=== PATIENT | male | born 1985 | race African-American/Black ===

== ENCOUNTER 2017-01-10 16:27 | Inpatient (IN) | payer OTHER ==
[2017-01-10 19:02] VITALS: BMI 26.6
--- NOTE | 2017-01-10 20:38 | HP ---
CIWA Score - CIWA Score Nausea/Vomitin-Mild Nausea/No Vomiting Muscle Tremors: 2 Anxiety: 3 Agitation: 1-Slight > Activity Paroxysmal Sweats: 2 Orientation: 1-Uncertain about Date Tacttile Disturbances: 1-Very Mild Itch/Numbness Auditory Disturbances: 0-None Visual Disturbances: 1-Very Mild Sensitivity Headache: 1-Very Mild CIWA-Ar Total Score: 13 Admission ROS BHS - HPI Chief Complaint: WITHDRAWAL SYMPTOMS Allergies/Adverse Reactions: Allergies Allergy/AdvReac Type Severity Reaction Status Date / Time No Known Allergies Allergy Verified 09/21/11 23:39 History of Present Illness: 31 Y.O. MAN WITH A HISTORY OF ALCOHOL AND PCP DEPENDENCE IS HERE FOR HIS FIRST ADMISSION INTO DETOX. HE WAS LAST HERE FOR REHAB IN 2012. REPORTS HIS LONGEST PERIOD SOBER HAS BEEN 1.5 YEARS. Exam Limitations: No Limitations - Ebola screening Have you traveled outside of the country in the last 21 days: No Have you had contact with anyone from an Ebola affected area: No Have you been sick,other than usual withdrawal symptoms: No Do you have a fever: No - Review of Systems Constitutional: Loss of Appetite, Unintentional Wgt. Loss EENT: reports: Tearing, Nose Congestion Respiratory: reports: Cough Cardiac: reports: No Symptoms Reported GI: reports: No Symptoms Reported : reports: No Symptoms Reported Musculoskeletal: reports: Back Pain Integumentary: reports: No Symptoms Reported Neuro: reports: Tremors Endocrine: reports: No Symptoms Reported Hematology: reports: No Symptoms Reported Psychiatric: reports: Judgement Intact, Mood/Affect Appropiate Other Systems: Reviewed and Negative Patient History - Patient Medical History Hx Anemia: No Hx Asthma: No Hx Chronic Obstructive Pulmonary Disease (COPD): No Hx Cancer: No Hx Cardiac Disorders: No Hx Congestive Heart Failure: No Hx Hypertension: No Hx Hypercholesterolemia: No Hx Pacemaker: No HX Cerebrovascular Accident: No Hx Seizures: No Hx Dementia: No Hx Diabetes: No Hx Gastrointestinal Disorders: No Hx Liver Disease: No Hx Genitourinary Disorders: No Hx Sexually Transmitted Disorders: No Hx Renal Disease (ESRD): No Hx Thyroid Disease: No Hx Human Immunodeficiency Virus (HIV): No Hx Hepatitis C: No Hx Depression: No Hx Suicide Attempt: No Hx Bipolar Disorder: No Hx Schizophrenia: No - Patient Surgical History Past Surgical History: Yes Hx Neurologic Surgery: Yes (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.) Hx Cataract Extraction: No Hx Cardiac Surgery: No Hx Lung Surgery: No Hx Breast Surgery: No Hx Breast Biopsy: No Hx Abdominal Surgery: No Hx Appendectomy: No Hx Cholecystectomy: No Hx Genitourinary Surgery: No Hx Section: No Hx Orthopedic Surgery: No Other Surgical History: surg to left side brain to remove clot; 4 yrs ago Anesthesia Reaction: No - PPD History Previous Implant?: Yes Documented Results: Negative w/o proof Date: 11/19/12 PPD to be Administered?: Yes - Reproductive History Patient is a Female of Child Bearing Age (11 -55 yrs old): No - Smoking Cessation Smoking history: Former smoker Have you smoked in the past 12 months: No Aproximately how many cigarettes per day: 7 Hx Chewing Tobacco Use: No Initiated information on smoking cessation: Yes 'Breaking Loose' booklet given: 01/10/17 - Substance & Tx. History Hx Alcohol Use: Yes Hx Substance Use: Yes Substance Use Type: Alcohol Hx Substance Use Treatment: Yes (REHAB: 2013; NEVER BEEN TO DETOX ) - Substances Abused Alcohol Route: Oral Frequency: Daily Amount used: 6 24OZ CANS OF BEER Age of first use: 19 Date of Last Use: 01/10/17 PCP Route: Smoking Frequency: Daily Amount used: $10 Age of first use: 28 Date of Last Use: 01/09/17 Family Disease History - Family Disease History Family History: Denies Admission Physical Exam BHS - Vital Signs Vital Signs: Vital Signs - 24 hr 01/10/17 19:00 Temperature 96.9 F L Pulse Rate 83 Respiratory 18 Rate Blood Pressure 154/82 - Physical General Appearance: Yes: Within Normal Limits HEENTM: Yes: Normocephalic, Normal Voice, NIDIA Respiratory: Yes: Chest Non-Tender, Lungs Clear, Normal Breath Sounds, No Respiratory Distress, No Accessory Muscle Use Neck: Yes: No masses,lesions,Nodules, Trachea in good position Breast: Yes: Breast Exam Deferred Cardiology: Yes: Regular Rhythm, Regular Rate Abdominal: Yes: Normal Bowel Sounds, Non Tender, Flat, Soft Genitourinary: Yes: Other (NO COMPLAINTS REPORTED) Back: Yes: Normal Inspection Musculoskeletal: Yes: full range of Motion, Gait Steady Extremities: Yes: Normal Inspection, Normal Range of Motion, Tremors Neurological: Yes: Alert, Motor Strength 5/5, Normal Mood/Affect, Normal Response Integumentary: Yes: Normal Color, Dry Lymphatic: Yes: Within Normal Limits - Diagnostic (1) Nicotine dependence Current Visit: Yes Status: Chronic Qualifiers: Nicotine product type: cigarettes Substance use status: uncomplicated Qualified Code(s): F17.210 - Nicotine dependence, cigarettes, uncomplicated (2) Alcohol dependence with uncomplicated withdrawal Current Visit: Yes Status: Chronic (3) PCP dependence Current Visit: Yes Status: Chronic Cleared for Admission [facility] - Detox or Rehab [facility] Level of Care: Medically Managed Detox Regimen/Protocol: Librium [facility] Breath Alcohol Content Breath Alcohol Content: 0.031 Urine Drug Screen - Results Drug Screen Negative: No Urine Drug Screen Results: PCP-Phencyclidine
[2017-01-10] MEDS ORDERED: IBUPROFEN 400 MG TABLET (FP) PO PRN (20:51)
[2017-01-10] MEDS ORDERED: chlordiazePOXIDE HCL 25 MG CAPSULE PO PRN (20:51)
[2017-01-10] MEDS ORDERED: ACETAMINOPHEN 325 MG TABLET (FP) PO PRN (20:51)
[2017-01-10] MEDS ORDERED: P-EPHED 60MG/TRIPROLIDI 2.5MG TABLET PO PRN (20:51)
[2017-01-10] MEDS ORDERED: LOPERAMIDE HCL 2 MG CAPSULE PO PRN (20:51)
[2017-01-10] MEDS ORDERED: chlordiazePOXIDE HCL 25 MG CAPSULE PO ONE (20:51)
[2017-01-10] MEDS ORDERED: guaiFENesin/D-METHORPHAN HB 10 ML UNIT-DOSE CUPS PO PRN (20:51)
[2017-01-10] MEDS ORDERED: MAGNESIUM CITRATE 300 ML BOTTLE PO PRN (20:51)
[2017-01-10] MEDS ORDERED: hydrOXYzine PAMOATE 50 MG CAPSULE (FP) PO PRN (20:51)
[2017-01-10] MEDS ORDERED: MENTHOL/PHENOL 1 EACH UD MM PRN (20:51)
[2017-01-10] MEDS ORDERED: MAG HYDROX/AL HYDROX/SIMETH 30 ML UNIT-DOSE CUP PO PRN (20:51)
[2017-01-10] MEDS ORDERED: MAGNESIUM HYDROX 2400MG/30ML ORAL SUSPENSION 30 ML CUP PO PRN (20:51)
[2017-01-10] MEDS: chlordiazePOXIDE HCL 25 MG CAPSULE PO SCH (22:20)
[2017-01-10] MEDS: BACITRACIN 0.9 GM PACKET TP SCH (22:20)
[2017-01-10] MEDS: THIAMINE HCL 100 MG TABLET (FP) PO SCH (22:20)
[2017-01-10 23:46] LABS: URINE APPEARANCE CLEAR; URINE BILIRUBIN NEGATIVE (NEGATIVE); URINE BLOOD NEGATIVE (NEGATIVE); URINE COLOR YELLOW; URINE GLUCOSE (UA) NEGATIVE (NEGATIVE); URINE KETONE NEGATIVE (NEGATIVE); URINE LEUK ESTERASE NEGATIVE (NEGATIVE); URINE NITRITE NEGATIVE (NEGATIVE); URINE PROTEIN NEGATIVE (NEGATIVE); URINE UROBILINOGEN NEGATIVE mg/dL (0.2-1.0)
[2017-01-11] MEDS: chlordiazePOXIDE HCL 25 MG CAPSULE PO SCH ×4 (05:47→22:25)
--- NOTE | 2017-01-11 09:20 | EKG ---
Test Reason : Blood Pressure : / mmHG Vent. Rate : 063 BPM Atrial Rate : 063 BPM P-R Int : 146 ms QRS Dur : 092 ms QT Int : 390 ms P-R-T Axes : 058 073 057 degrees QTc Int : 399 ms NORMAL SINUS RHYTHM VOLTAGE CRITERIA FOR LEFT VENTRICULAR HYPERTROPHY ABNORMAL ECG NO PREVIOUS ECGS AVAILABLE Confirmed by SAMMIE PAK MD ([id number]) on 01/11/2017 9:20:13 AM Referred By: Yordy Delcid Confirmed By:SAMMIE PAK MD
[2017-01-11 10:19] LABS: MCH 22.6 pg (25.7-33.7); MCHC 30.7 g/dl (32.0-35.9); MEAN CELL VOLUME 73.6 fl (80-96); MEAN PLT VOLUME 9.3 fl (7.5-11.1); PLATELET COUNT 237 K/MM3 (134-434); RDW 14.3 % (11.9-15.9); WHITE BLOOD COUNT 6.4 K/mm3 (4.0-10.0)
[2017-01-11] MEDS: PRENATAL VITAMINS W/ FOLIC ACID TABLET (FP) PO SCH (10:43)
[2017-01-11] MEDS: BACITRACIN 0.9 GM PACKET TP SCH (10:44)
[2017-01-11 11:20] LABS: ALBUMIN 3.9 g/dl (3.4-5.0); ALK PHOS 58 U/L (45-117); ANION GAP 7 (8-16); BILIRUBIN,TOTAL 0.5 mg/dL (0.2-1.0); CALCIUM 9.1 mg/dL (8.5-10.1); CO2 29 mmol/L (21-32); CREATININE 0.7 mg/dL (0.7-1.3); GLUCOSE,RANDOM 78 mg/dL (74-106); SGOT/AST 51 U/L (15-37); SGPT/ALT 48 U/L (12-78); TOT PROT 6.5 g/dl (6.4-8.2)
[2017-01-11 11:51] LABS: HIV 1 & 2 AB NEGATIVE; HIV 1 AGp24 NEGATIVE
--- NOTE | 2017-01-11 12:41 | PN ---
[facility] CIWA - CIWA Score Nausea/Vomitin-No Nausea/No Vomiting Muscle Tremors: 4-Moderate,w/Arms Extend Anxiety: 4-Mod. Anxious/Guarded Agitation: 4-Moderately Restless Paroxysmal Sweats: 1-Minimal Palms Moist Orientation: 0-Oriented Tacttile Disturbances: 3-Moderate Itch/Numb/Burn Auditory Disturbances: 0-None Visual Disturbances: 0-None Headache: 0-None Present CIWA-Ar Total Score: 16 S Progress Note (SOAP) Subjective: ANXIETY,SWEATS, TREMORS, INTERMITTENT SLEEP. Objective: 01/11/17 12:40 Vital Signs Temperature 96.0 F L 01/11/17 10:34 Pulse Rate 60 01/11/17 10:34 Respiratory Rate 18 01/11/17 10:34 Blood Pressure 116/74 01/11/17 10:34 O2 Sat by Pulse Oximetry (%) Laboratory Last Values WBC 6.4 K/mm3 (4.0-10.0) 01/11/17 07:40 RBC 5.22 M/mm3 (4.00-5.60) 01/11/17 07:40 Hgb 11.8 GM/dL (11.7-16.9) 01/11/17 07:40 Hct 38.4 % (35.4-49) 01/11/17 07:40 MCV 73.6 fl (80-96) L 01/11/17 07:40 MCH 22.6 pg (25.7-33.7) L 01/11/17 07:40 MCHC 30.7 g/dl (32.0-35.9) L 01/11/17 07:40 RDW 14.3 % (11.9-15.9) 01/11/17 07:40 Plt Count 237 K/MM3 (134-434) 01/11/17 07:40 MPV 9.3 fl (7.5-11.1) 01/11/17 07:40 Sodium 140 mmol/L (136-145) 01/11/17 07:40 Potassium 3.9 mmol/L (3.5-5.1) 01/11/17 07:40 Chloride 104 mmol/L (98-107) 01/11/17 07:40 Carbon Dioxide 29 mmol/L (21-32) 01/11/17 07:40 Anion Gap 7 (8-16) L 01/11/17 07:40 BUN 11 mg/dL (7-18) 01/11/17 07:40 Creatinine 0.7 mg/dL (0.7-1.3) 01/11/17 07:40 Creat Clearance w eGFR > 60 (>60) 01/11/17 07:40 Random Glucose 78 mg/dL (74-106) 01/11/17 07:40 Calcium 9.1 mg/dL (8.5-10.1) 01/11/17 07:40 Total Bilirubin 0.5 mg/dL (0.2-1.0) D 01/11/17 07:40 AST 51 U/L (15-37) H 01/11/17 07:40 ALT 48 U/L (12-78) 01/11/17 07:40 Alkaline Phosphatase 58 U/L (45-117) 01/11/17 07:40 Total Protein 6.5 g/dl (6.4-8.2) 01/11/17 07:40 Albumin 3.9 g/dl (3.4-5.0) 01/11/17 07:40 Urine Color Yellow 01/10/17 21:59 Urine Appearance Clear 01/10/17 21:59 Urine pH 5.0 (5.0-8.0) 01/10/17 21:59 Ur Specific [place] 1.025 (1.005-1.025) 01/10/17 21:59 Urine Protein Negative (NEGATIVE) 01/10/17 21:59 Urine Glucose (UA) Negative (NEGATIVE) 01/10/17 21:59 Urine Ketones Negative (NEGATIVE) 01/10/17 21:59 Urine Blood Negative (NEGATIVE) 01/10/17 21:59 Urine Nitrite Negative (NEGATIVE) 01/10/17 21:59 Urine Bilirubin Negative (NEGATIVE) 01/10/17 21:59 Urine Urobilinogen Negative mg/dL (0.2-1.0) 01/10/17 21:59 RPR Titer Nonreactive (NONREACTIVE) 01/11/17 07:40 HIV 1&2 Antibody Screen Negative 01/11/17 07:40 HIV P24 Antigen Negative 01/11/17 07:40 Assessment: 01/11/17 12:40 WITHDRAWAL SX Plan: CONTINUE DETOX
[2017-01-11] MEDS: diphenhydrAMINE HCL 50 MG CAPSULE PO PRN (22:25)
[2017-01-11] MEDS: THIAMINE HCL 100 MG TABLET (FP) PO SCH (22:25)
[2017-01-12] MEDS: chlordiazePOXIDE HCL 25 MG CAPSULE PO SCH ×3 (05:49→17:34)
[2017-01-12] MEDS: PRENATAL VITAMINS W/ FOLIC ACID TABLET (FP) PO SCH (10:40)
[2017-01-12] MEDS: BACITRACIN 0.9 GM PACKET TP SCH (10:40)
--- NOTE | 2017-01-12 13:50 | PN ---
[facility] CIWA - CIWA Score Nausea/Vomitin-No Nausea/No Vomiting Muscle Tremors: 4-Moderate,w/Arms Extend Anxiety: 4-Mod. Anxious/Guarded Agitation: 3 Paroxysmal Sweats: 3 Orientation: 0-Oriented Tacttile Disturbances: 0-None Auditory Disturbances: 2-Mild Harshness/Frighten Visual Disturbances: 3-Moderate Sensitivity Headache: 0-None Present CIWA-Ar Total Score: 19 S Progress Note (SOAP) Subjective: Tremors, Fatigue, Sweating, Anxious. Objective: PT. A & O X 3. NO ACUTE DISTRESS. 01/12/17 13:48 Vital Signs Temperature 96.5 F L 01/12/17 09:46 Pulse Rate 65 01/12/17 09:46 Respiratory Rate 18 01/12/17 09:46 Blood Pressure 112/43 01/12/17 09:46 O2 Sat by Pulse Oximetry (%) Laboratory Tests 01/10/17 01/11/17 01/11/17 21:59 07:40 07:40 WBC 6.4 RBC 5.22 Hgb 11.8 Hct 38.4 MCV 73.6 L MCH 22.6 L MCHC 30.7 L RDW 14.3 Plt Count 237 MPV 9.3 Sodium Potassium Chloride Carbon Dioxide Anion Gap BUN Creatinine Creat Clearance w eGFR Random Glucose Calcium Total Bilirubin AST ALT Alkaline Phosphatase Total Protein Albumin Urine Color Yellow Urine Appearance Clear Urine pH 5.0 Ur Specific [place] 1.025 Urine Protein Negative Urine Glucose (UA) Negative Urine Ketones Negative Urine Blood Negative Urine Nitrite Negative Urine Bilirubin Negative Urine Urobilinogen Negative RPR Titer Hepatitis C Antibody 0.1 HIV 1&2 Antibody Screen HIV P24 Antigen 01/11/17 01/11/17 01/11/17 07:40 07:40 07:40 WBC RBC Hgb Hct MCV MCH MCHC RDW Plt Count MPV Sodium 140 Potassium 3.9 Chloride 104 Carbon Dioxide 29 Anion Gap 7 L BUN 11 Creatinine 0.7 Creat Clearance w eGFR > 60 Random Glucose 78 Calcium 9.1 Total Bilirubin 0.5 D AST 51 H ALT 48 Alkaline Phosphatase 58 Total Protein 6.5 Albumin 3.9 Urine Color Urine Appearance Urine pH Ur Specific [place] Urine Protein Urine Glucose (UA) Urine Ketones Urine Blood Urine Nitrite Urine Bilirubin Urine Urobilinogen RPR Titer Nonreactive Hepatitis C Antibody HIV 1&2 Antibody Screen Negative Negative HIV P24 Antigen Negative Negative LABS NOTED. Assessment: 01/12/17 13:49 WITHDRAWAL SYMPTOMS. Plan: CONTINUE DETOX. INCREASE DAILY PO FLUID INTAKE.
[2017-01-12] MEDS: THIAMINE HCL 100 MG TABLET (FP) PO SCH (22:25)
[2017-01-12] MEDS: diphenhydrAMINE HCL 50 MG CAPSULE PO PRN (22:26)
[2017-01-12] MEDS: chlordiazePOXIDE 5 MG CAPSULE PO SCH (22:26)
[2017-01-13] MEDS: chlordiazePOXIDE 5 MG CAPSULE PO SCH ×3 (05:43→17:47)
[2017-01-13] MEDS: PRENATAL VITAMINS W/ FOLIC ACID TABLET (FP) PO SCH (11:05)
[2017-01-13] MEDS: BACITRACIN 0.9 GM PACKET TP SCH (11:05)
--- NOTE | 2017-01-13 14:55 | PN ---
S Progress Note (SOAP) Subjective: Anxious, nausea, sweating, interrupted sleep Objective: 01/13/17 14:54 Last Vital Signs Temp Pulse Resp BP Pulse Ox 98.3 F 84 18 133/60 01/13/17 13:52 01/13/17 13:52 01/13/17 13:52 01/13/17 13:52 Laboratory Tests 01/10/17 01/11/17 01/11/17 21:59 07:40 07:40 WBC 6.4 RBC 5.22 Hgb 11.8 Hct 38.4 MCV 73.6 L MCH 22.6 L MCHC 30.7 L RDW 14.3 Plt Count 237 MPV 9.3 Sodium Potassium Chloride Carbon Dioxide Anion Gap BUN Creatinine Creat Clearance w eGFR Random Glucose Calcium Total Bilirubin AST ALT Alkaline Phosphatase Total Protein Albumin Urine Color Yellow Urine Appearance Clear Urine pH 5.0 Ur Specific [place] 1.025 Urine Protein Negative Urine Glucose (UA) Negative Urine Ketones Negative Urine Blood Negative Urine Nitrite Negative Urine Bilirubin Negative Urine Urobilinogen Negative RPR Titer Hepatitis C Antibody 0.1 HIV 1&2 Antibody Screen HIV P24 Antigen 01/11/17 01/11/17 01/11/17 07:40 07:40 07:40 WBC RBC Hgb Hct MCV MCH MCHC RDW Plt Count MPV Sodium 140 Potassium 3.9 Chloride 104 Carbon Dioxide 29 Anion Gap 7 L BUN 11 Creatinine 0.7 Creat Clearance w eGFR > 60 Random Glucose 78 Calcium 9.1 Total Bilirubin 0.5 D AST 51 H ALT 48 Alkaline Phosphatase 58 Total Protein 6.5 Albumin 3.9 Urine Color Urine Appearance Urine pH Ur Specific [place] Urine Protein Urine Glucose (UA) Urine Ketones Urine Blood Urine Nitrite Urine Bilirubin Urine Urobilinogen RPR Titer Nonreactive Hepatitis C Antibody HIV 1&2 Antibody Screen Negative Negative HIV P24 Antigen Negative Negative Labs noted Assessment: 01/13/17 14:55 Withdrawal symptoms Plan: Continue detox
[2017-01-13] MEDS: THIAMINE HCL 100 MG TABLET (FP) PO SCH (22:33)
[2017-01-13] MEDS: diphenhydrAMINE HCL 50 MG CAPSULE PO PRN (22:33)
[2017-01-13] MEDS: chlordiazePOXIDE HCL 10 MG CAPSULE PO SCH (22:33)
[2017-01-14] MEDS: chlordiazePOXIDE HCL 10 MG CAPSULE PO SCH (05:55)
[2017-01-14 06:18] VITALS: BP 103/64; PULSE 55; TEMP 96.7
--- NOTE | 2017-01-14 09:25 | DS ---
[facility] Detox Discharge Summary Admission Date: 01/10/17 Discharge Date: 01/14/17 - History Present History: Alcohol Dependence, Pcp Dependence Pertinent Past History: Denies - Physical Exam Results Vital Signs: Vital Signs Temperature 96.7 F L 01/14/17 06:16 Pulse Rate 55 L 01/14/17 06:16 Respiratory Rate 16 01/14/17 06:16 Blood Pressure 103/64 01/14/17 06:16 O2 Sat by Pulse Oximetry (%) Pertinent Admission Physical Exam Findings: Withdrawal sx Laboratory Last Values WBC 6.4 K/mm3 (4.0-10.0) 01/11/17 07:40 RBC 5.22 M/mm3 (4.00-5.60) 01/11/17 07:40 Hgb 11.8 GM/dL (11.7-16.9) 01/11/17 07:40 Hct 38.4 % (35.4-49) 01/11/17 07:40 MCV 73.6 fl (80-96) L 01/11/17 07:40 MCH 22.6 pg (25.7-33.7) L 01/11/17 07:40 MCHC 30.7 g/dl (32.0-35.9) L 01/11/17 07:40 RDW 14.3 % (11.9-15.9) 01/11/17 07:40 Plt Count 237 K/MM3 (134-434) 01/11/17 07:40 MPV 9.3 fl (7.5-11.1) 01/11/17 07:40 Sodium 140 mmol/L (136-145) 01/11/17 07:40 Potassium 3.9 mmol/L (3.5-5.1) 01/11/17 07:40 Chloride 104 mmol/L (98-107) 01/11/17 07:40 Carbon Dioxide 29 mmol/L (21-32) 01/11/17 07:40 Anion Gap 7 (8-16) L 01/11/17 07:40 BUN 11 mg/dL (7-18) 01/11/17 07:40 Creatinine 0.7 mg/dL (0.7-1.3) 01/11/17 07:40 Creat Clearance w eGFR > 60 (>60) 01/11/17 07:40 Random Glucose 78 mg/dL (74-106) 01/11/17 07:40 Calcium 9.1 mg/dL (8.5-10.1) 01/11/17 07:40 Total Bilirubin 0.5 mg/dL (0.2-1.0) D 01/11/17 07:40 AST 51 U/L (15-37) H 01/11/17 07:40 ALT 48 U/L (12-78) 01/11/17 07:40 Alkaline Phosphatase 58 U/L (45-117) 01/11/17 07:40 Total Protein 6.5 g/dl (6.4-8.2) 01/11/17 07:40 Albumin 3.9 g/dl (3.4-5.0) 01/11/17 07:40 Urine Color Yellow 01/10/17 21:59 Urine Appearance Clear 01/10/17 21:59 Urine pH 5.0 (5.0-8.0) 01/10/17 21:59 Ur Specific [place] 1.025 (1.005-1.025) 01/10/17 21:59 Urine Protein Negative (NEGATIVE) 01/10/17 21:59 Urine Glucose (UA) Negative (NEGATIVE) 01/10/17 21:59 Urine Ketones Negative (NEGATIVE) 01/10/17 21:59 Urine Blood Negative (NEGATIVE) 01/10/17 21:59 Urine Nitrite Negative (NEGATIVE) 01/10/17 21:59 Urine Bilirubin Negative (NEGATIVE) 01/10/17 21:59 Urine Urobilinogen Negative mg/dL (0.2-1.0) 01/10/17 21:59 RPR Titer Nonreactive (NONREACTIVE) 01/11/17 07:40 Hepatitis C Antibody 0.1 s/co ratio (0.0-0.9) 01/11/17 07:40 HIV 1&2 Antibody Screen Negative 01/11/17 07:40 HIV P24 Antigen Negative 01/11/17 07:40 Labs noted - Treatment Hospital Course: Detox Protocol Followed, Detoxed Safely, Responded well, Discharged Condition Good, Rehab Referral Accepted Patient has Accepted a Rehab Referral to: [facility] - Medication Discharge Medications: Ambulatory Orders NK [No Known Home Medication] 01/10/17 - Diagnosis (1) Alcohol dependence with uncomplicated withdrawal Current Visit: Yes Status: Acute (2) Nicotine dependence Current Visit: Yes Status: Acute Qualifiers: Nicotine product type: cigarettes Substance use status: uncomplicated Qualified Code(s): F17.210 - Nicotine dependence, cigarettes, uncomplicated (3) PCP dependence Current Visit: Yes Status: Acute - AMA Did Patient Leave Against Medical Advice: No
== END 2017-01-14 10:02 | disposition home or self-care (01) | DRG 775 ==
LOC: YASAS 16:27 → Y3N 20:28
PROVIDERS: ADMIT Internal Medicine; ATTEND Internal Medicine
PROC: HZ2ZZZZ Detoxification Services for Substance Abuse Treatment (ICD-10-PCS; principal; 2017-01-10)
DX: F10.230 Alcohol dependence with withdrawal, uncomplicated (principal); F16.20 Hallucinogen dependence, uncomplicated; F17.210 Nicotine dependence, cigarettes, uncomplicated
CPT/HCPCS: 36415; 80053; 81003; 85027; 86593; 86803; 87389; 93005; 93010

== ENCOUNTER 2019-01-05 12:30 | Inpatient (IN) | payer OTHER ==
[2019-01-05 15:28] VITALS: BMI 23.8
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
--- NOTE | 2019-01-05 16:22 | PN ---
Teaching Attending Note Name of Resident: Zia Chávez ATTENDING PHYSICIAN STATEMENT I saw and evaluated the patient. I reviewed the resident's note and discussed the case with the resident. I agree with the resident's findings and plan as documented. SUBJECTIVE: 33 yo with h/o alcohol use disorder- here for detox. Pt was referred here from outpt alcohol program. MATT- 0.88 OBJECTIVE: Vital Signs - 24 hr 01/05/19 15:17 Temperature 97.1 F L Pulse Rate 78 Respiratory 20 Rate Blood Pressure 128/70 tremulous anxious ASSESSMENT AND PLAN: Alcohol use disorder- start librium detox protocol
[2019-01-05] MEDS ORDERED: NICOTINE POLACRILEX 2 MG GUM BUC PRN (16:23)
[2019-01-05] MEDS ORDERED: MAGNESIUM CITRATE 300 ML BOTTLE PO PRN (16:23)
[2019-01-05] MEDS ORDERED: hydrOXYzine PAMOATE 25 MG CAPSULE (FP) PO PRN (16:23)
[2019-01-05] MEDS ORDERED: MAGNESIUM HYDROX 2400MG/30ML ORAL SUSPENSION 30 ML CUP PO PRN (16:23)
[2019-01-05] MEDS ORDERED: METHOCARBAMOL 500 MG TABLET PO PRN (16:23)
[2019-01-05] MEDS ORDERED: MENTHOL/PHENOL 1 EACH UD MM PRN (16:23)
[2019-01-05] MEDS ORDERED: BISMUTH SUBSALICYLATE 524 MG/30 ML UD PO PRN (16:23)
[2019-01-05] MEDS ORDERED: ACETAMINOPHEN 325 MG TABLET (FP) PO PRN ×2 (16:23)
[2019-01-05] MEDS ORDERED: IBUPROFEN 400 MG TABLET (FP) PO PRN (16:23)
[2019-01-05] MEDS ORDERED: MAG HYDROX/AL HYDROX/SIMETH 30 ML UNIT-DOSE CUP PO PRN (16:23)
[2019-01-05] MEDS ORDERED: chlordiazePOXIDE HCL 10 MG CAPSULE PO PRN (16:23)
[2019-01-05] MEDS: chlordiazePOXIDE HCL 25 MG CAPSULE PO SCH ×2 (17:47→22:11)
[2019-01-05] MEDS: THIAMINE HCL 100 MG TABLET (FP) PO SCH (22:11)
[2019-01-06] MEDS: chlordiazePOXIDE HCL 25 MG CAPSULE PO SCH ×3 (05:48→21:59)
--- NOTE | 2019-01-06 09:53 | PN ---
S CIWA - CIWA Score Nausea/Vomitin Muscle Tremors: 2 Anxiety: 2 Agitation: 2 Paroxysmal Sweats: No Perspiration Orientation: 0-Oriented Tacttile Disturbances: 1-Very Mild Itch/Numbness Auditory Disturbances: 0-None Visual Disturbances: 0-None Headache: 2-Mild CIWA-Ar Total Score: 11 BHS Progress Note (SOAP) Subjective: alert,irritable,anxious,interrupted sleep,tremor,abrasion of right thumb Objective: 01/06/19 09:51 Vital Signs Temperature 97.4 F L 01/06/19 09:08 Pulse Rate 70 01/06/19 09:08 Respiratory Rate 18 01/06/19 09:08 Blood Pressure 100/56 L 01/06/19 09:08 O2 Sat by Pulse Oximetry (%) 01/06/19 09:51 Laboratory Last Values TB (QFT) Incubation Cancelled 01/06/19 08:00 TB Test (QFT) Nil Cancelled 01/06/19 08:00 TB Test (QFT) Mitogen Cancelled 01/06/19 08:00 TB Test (QFT) Antigen Cancelled 01/06/19 08:00 TB Test (QFT) Cancelled 01/06/19 08:00 TB Positive Criteria Cancelled 01/06/19 08:00 TB Test (QFT) Interp Cancelled 01/06/19 08:00 labs pending Assessment: 01/06/19 09:52 withdrawal symptom Plan: continue detox librium regimen
[2019-01-06 10:03] LABS: HEMATOCRIT 37.1 % (35.4-49); HEMOGLOBIN 11.7 GM/dL (11.7-16.9); MCH 22.8 pg (25.7-33.7); MCHC 31.5 g/dl (32.0-35.9); MEAN CELL VOLUME 72.1 fl (80-96); MEAN PLT VOLUME 9.1 fl (7.5-11.1); PLATELET COUNT 227 K/MM3 (134-434); RBC 5.15 M/mm3 (4.00-5.60); RDW 15.6 % (11.9-15.9); WHITE BLOOD COUNT 5.3 K/mm3 (4.0-10.0)
[2019-01-06 10:07] LABS: ALBUMIN 3.7 g/dl (3.4-5.0); BILIRUBIN,TOTAL 0.8 mg/dL (0.2-1); BLOOD UREA NITROGEN 11.4 mg/dL (7-18); CALCIUM 9.1 mg/dL (8.5-10.1); CREATININE 0.7 mg/dL (0.55-1.3); POTASSIUM 4.1 mmol/L (3.5-5.1); TOT PROT 6.6 g/dl (6.4-8.2)
[2019-01-06] MEDS: PRENATAL VITAMINS W/ FOLIC ACID TABLET (FP) PO SCH (10:10)
[2019-01-06] MEDS: BACITRACIN 15 GM TUBE TOPICAL OINTMENT TP SCH ×2 (13:11→22:00)
[2019-01-06] MEDS: THIAMINE HCL 100 MG TABLET (FP) PO SCH (21:59)
[2019-01-06] MEDS: MELATONIN 5 MG TABLETS PO PRN (22:00)
[2019-01-07] MEDS: chlordiazePOXIDE 5 MG CAPSULE PO SCH ×3 (06:25→22:00)
[2019-01-07] MEDS: PRENATAL VITAMINS W/ FOLIC ACID TABLET (FP) PO SCH (10:05)
[2019-01-07] MEDS: BACITRACIN 15 GM TUBE TOPICAL OINTMENT TP SCH ×2 (10:05→22:01)
--- NOTE | 2019-01-07 14:03 | PN ---
[facility] CIWA - CIWA Score Nausea/Vomitin-Mild Nausea/No Vomiting Muscle Tremors: 3 Anxiety: 2 Agitation: 2 Paroxysmal Sweats: 1-Minimal Palms Moist Orientation: 0-Oriented Tacttile Disturbances: 1-Very Mild Itch/Numbness Auditory Disturbances: 0-None Visual Disturbances: 0-None Headache: 0-None Present CIWA-Ar Total Score: 10 S Progress Note (SOAP) Subjective: doing well with librium detox regimen feeling tired resting on bed prefers to stay in bed today limited conversation with staff denies depression but tired Objective: 01/07/19 14:03 Vital Signs Temperature 96.2 F L 01/07/19 13:06 Pulse Rate 63 01/07/19 13:06 Respiratory Rate 18 01/07/19 13:06 Blood Pressure 129/78 01/07/19 13:06 O2 Sat by Pulse Oximetry (%) Laboratory Last Values WBC 5.3 K/mm3 (4.0-10.0) 01/06/19 08:00 RBC 5.15 M/mm3 (4.00-5.60) 01/06/19 08:00 Hgb 11.7 GM/dL (11.7-16.9) 01/06/19 08:00 Hct 37.1 % (35.4-49) 01/06/19 08:00 MCV 72.1 fl (80-96) L 01/06/19 08:00 MCH 22.8 pg (25.7-33.7) L 01/06/19 08:00 MCHC 31.5 g/dl (32.0-35.9) L 01/06/19 08:00 RDW 15.6 % (11.9-15.9) 01/06/19 08:00 Plt Count 227 K/MM3 (134-434) 01/06/19 08:00 MPV 9.1 fl (7.5-11.1) 01/06/19 08:00 Sodium 139 mmol/L (136-145) 01/06/19 08:00 Potassium 4.1 mmol/L (3.5-5.1) 01/06/19 08:00 Chloride 105 mmol/L (98-107) 01/06/19 08:00 Carbon Dioxide 29 mmol/L (21-32) 01/06/19 08:00 Anion Gap 5 MMOL/L (8-16) L 01/06/19 08:00 BUN 11.4 mg/dL (7-18) 01/06/19 08:00 Creatinine 0.7 mg/dL (0.55-1.3) 01/06/19 08:00 Est GFR (CKD-EPI)AfAm 141.70 01/06/19 08:00 Est GFR (CKD-EPI)NonAf 122.26 01/06/19 08:00 Random Glucose 86 mg/dL (74-106) 01/06/19 08:00 Calcium 9.1 mg/dL (8.5-10.1) 01/06/19 08:00 Total Bilirubin 0.8 mg/dL (0.2-1) 01/06/19 08:00 AST 49 U/L (15-37) H 01/06/19 08:00 ALT 60 U/L (13-61) 01/06/19 08:00 Alkaline Phosphatase 56 U/L (45-117) 01/06/19 08:00 Total Protein 6.6 g/dl (6.4-8.2) 01/06/19 08:00 Albumin 3.7 g/dl (3.4-5.0) 01/06/19 08:00 RPR Titer Nonreactive (NONREACTIVE) 01/06/19 08:00 TB (QFT) Incubation Cancelled 01/06/19 08:00 TB Test (QFT) Nil Cancelled 01/06/19 08:00 TB Test (QFT) Mitogen Cancelled 01/06/19 08:00 TB Test (QFT) Antigen Cancelled 01/06/19 08:00 TB Test (QFT) Cancelled 01/06/19 08:00 TB Positive Criteria Cancelled 01/06/19 08:00 TB Test (QFT) Interp Cancelled 01/06/19 08:00 lab noted Assessment: 01/07/19 14:03 alcohol withdrawal sx Plan: continue librium detox
[2019-01-07] MEDS: MELATONIN 5 MG TABLETS PO PRN (22:01)
[2019-01-07] MEDS: THIAMINE HCL 100 MG TABLET (FP) PO SCH (22:01)
[2019-01-08] MEDS ORDERED: chlordiazePOXIDE HCL 10 MG CAPSULE PO PRN
[2019-01-08] MEDS: chlordiazePOXIDE HCL 10 MG CAPSULE PO SCH ×3 (05:46→21:59)
--- NOTE | 2019-01-08 09:13 | PN ---
[facility] COWS - Scale Resting Pulse: 0= UT 80 or Below Sweatin= Chills/Flushing Restless Observation: 1= Difficult to Sit Still Pupil Size: 0= Normal to Room Light Bone or Joint Aches: 1= Mild Discomfort Runny Nose/ Eye Tearin= Nasal Congestion GI Upset > 30mins: 1= Stomach Cramp Tremor Observation of Outstretched Hands: 1= Tremor [place], Not Seen Yawning Observation: 1= 1-2x During Session Anxiety or Irritability: 1=Feels Anxious/Irritable Goose Flesh Skin: 0=Smooth Skin COWS Score: 8 S Progress Note (SOAP) Subjective: doing well with librium detox regimen ate 90% breakfast resting on bed comfortably less tremor mild anxiety Objective: 01/08/19 09:12 Vital Signs Temperature 97.8 F 01/08/19 06:17 Pulse Rate 49 L 01/08/19 06:17 Respiratory Rate 18 01/08/19 06:17 Blood Pressure 116/68 01/08/19 06:17 O2 Sat by Pulse Oximetry (%) Laboratory Last Values WBC 5.3 K/mm3 (4.0-10.0) 01/06/19 08:00 RBC 5.15 M/mm3 (4.00-5.60) 01/06/19 08:00 Hgb 11.7 GM/dL (11.7-16.9) 01/06/19 08:00 Hct 37.1 % (35.4-49) 01/06/19 08:00 MCV 72.1 fl (80-96) L 01/06/19 08:00 MCH 22.8 pg (25.7-33.7) L 01/06/19 08:00 MCHC 31.5 g/dl (32.0-35.9) L 01/06/19 08:00 RDW 15.6 % (11.9-15.9) 01/06/19 08:00 Plt Count 227 K/MM3 (134-434) 01/06/19 08:00 MPV 9.1 fl (7.5-11.1) 01/06/19 08:00 Sodium 139 mmol/L (136-145) 01/06/19 08:00 Potassium 4.1 mmol/L (3.5-5.1) 01/06/19 08:00 Chloride 105 mmol/L (98-107) 01/06/19 08:00 Carbon Dioxide 29 mmol/L (21-32) 01/06/19 08:00 Anion Gap 5 MMOL/L (8-16) L 01/06/19 08:00 BUN 11.4 mg/dL (7-18) 01/06/19 08:00 Creatinine 0.7 mg/dL (0.55-1.3) 01/06/19 08:00 Est GFR (CKD-EPI)AfAm 141.70 01/06/19 08:00 Est GFR (CKD-EPI)NonAf 122.26 01/06/19 08:00 Random Glucose 86 mg/dL (74-106) 01/06/19 08:00 Calcium 9.1 mg/dL (8.5-10.1) 01/06/19 08:00 Total Bilirubin 0.8 mg/dL (0.2-1) 01/06/19 08:00 AST 49 U/L (15-37) H 01/06/19 08:00 ALT 60 U/L (13-61) 01/06/19 08:00 Alkaline Phosphatase 56 U/L (45-117) 01/06/19 08:00 Total Protein 6.6 g/dl (6.4-8.2) 01/06/19 08:00 Albumin 3.7 g/dl (3.4-5.0) 01/06/19 08:00 RPR Titer Nonreactive (NONREACTIVE) 01/06/19 08:00 HIV 1&2 Ag/Ab, 4th Gen Non reactive (Non Reactive) 01/06/19 08:00 TB (QFT) Incubation Cancelled 01/06/19 08:00 TB Test (QFT) Nil Cancelled 01/06/19 08:00 TB Test (QFT) Mitogen Cancelled 01/06/19 08:00 TB Test (QFT) Antigen Cancelled 01/06/19 08:00 TB Test (QFT) Cancelled 01/06/19 08:00 TB Positive Criteria Cancelled 01/06/19 08:00 TB Test (QFT) Interp Cancelled 01/06/19 08:00 lab noted QFT blood sample received as ordered 01/06/19 result pending 01/08/19 09:14 Assessment: 01/08/19 09:16 alcohol withdrawal sx Plan: continue librium detox regimen
[2019-01-08] MEDS: BACITRACIN 15 GM TUBE TOPICAL OINTMENT TP SCH ×2 (10:08→21:59)
[2019-01-08] MEDS: PRENATAL VITAMINS W/ FOLIC ACID TABLET (FP) PO SCH (10:08)
[2019-01-08] MEDS: MELATONIN 5 MG TABLETS PO PRN (21:59)
[2019-01-08] MEDS: THIAMINE HCL 100 MG TABLET (FP) PO SCH (21:59)
[2019-01-09] MEDS ORDERED: chlordiazePOXIDE HCL 10 MG CAPSULE PO ONE (05:00)
[2019-01-09 09:20] VITALS: BP 112/72; PULSE 66; TEMP 96.8
[2019-01-09] MEDS: BACITRACIN 15 GM TUBE TOPICAL OINTMENT TP SCH (09:45)
[2019-01-09] MEDS: PRENATAL VITAMINS W/ FOLIC ACID TABLET (FP) PO SCH (09:45)
--- NOTE | 2019-01-09 19:10 | DS ---
[facility] Detox Discharge Summary Admission Date: 01/05/19 Discharge Date: 01/09/19 - History Present History: Alcohol Dependence, Pcp Dependence Additional Comments: SINCE NO BEDS ARE AVAILABLE IN [facility] AT THIS TIME, PATIENT TO RETURN HOME FOR THE WEEK. THEN HE WILL APPLY FOR ADMISSION TO [facility] ON 01/12/2019. PATIENT WAS DISCHARGED FROM DETOX UNIT IN STABLE MEDICAL CONDITION. Pertinent Past History: Nicotine Dependence, Elevated AST Level. - Physical Exam Results Vital Signs: Vital Signs Temperature 96.8 F L 01/09/19 09:19 Pulse Rate 66 01/09/19 09:19 Respiratory Rate 20 01/09/19 09:19 Blood Pressure 112/72 01/09/19 09:19 O2 Sat by Pulse Oximetry (%) Pertinent Admission Physical Exam Findings: WITHDRAWAL SYMPTOMS. Laboratory Tests 01/06/19 01/06/19 01/06/19 08:00 08:00 08:00 WBC 5.3 RBC 5.15 Hgb 11.7 Hct 37.1 MCV 72.1 L MCH 22.8 L MCHC 31.5 L RDW 15.6 Plt Count 227 MPV 9.1 Sodium 139 Potassium 4.1 Chloride 105 Carbon Dioxide 29 Anion Gap 5 L BUN 11.4 Creatinine 0.7 Est GFR (CKD-EPI)AfAm 141.70 Est GFR (CKD-EPI)NonAf 122.26 Random Glucose 86 Calcium 9.1 Total Bilirubin 0.8 AST 49 H ALT 60 Alkaline Phosphatase 56 Total Protein 6.6 Albumin 3.7 RPR Titer C. trachomatis (MARCY) HIV 1&2 Ag/Ab, 4th Gen N. gonorrhoeae (MARCY) TB (QFT) Incubation Cancelled TB Test (QFT) Nil Cancelled TB Test (QFT) Mitogen Cancelled TB Test (QFT) Antigen Cancelled TB Test (QFT) Cancelled TB Positive Criteria Cancelled TB Test (QFT) Interp Cancelled 01/06/19 01/06/19 01/06/19 08:00 08:00 12:25 WBC RBC Hgb Hct MCV MCH MCHC RDW Plt Count MPV Sodium Potassium Chloride Carbon Dioxide Anion Gap BUN Creatinine Est GFR (CKD-EPI)AfAm Est GFR (CKD-EPI)NonAf Random Glucose Calcium Total Bilirubin AST ALT Alkaline Phosphatase Total Protein Albumin RPR Titer Nonreactive C. trachomatis (MARCY) Cancelled HIV 1&2 Ag/Ab, 4th Gen Non reactive N. gonorrhoeae (MARCY) Cancelled TB (QFT) Incubation TB Test (QFT) Nil 0.03 TB Test (QFT) Mitogen >10.00 TB Test (QFT) Antigen 0.02 TB Test (QFT) Negative TB Positive Criteria TB Test (QFT) Interp LABS NOTED. - Treatment Hospital Course: Detox Protocol Followed, Detoxed Safely, Responded well, Discharged Condition Good, Rehab Referral Accepted Patient has Accepted a Rehab Referral to: [facility] (WILL RETURN TO APPLY ON 01/12/2019). - Medication Discharge Medications: Ambulatory Orders NK [No Known Home Medication] 01/10/17 - Diagnosis (1) Nicotine dependence Status: Acute Qualifiers: Nicotine product type: cigarettes Substance use status: uncomplicated Qualified Code(s): F17.210 - Nicotine dependence, cigarettes, uncomplicated (2) PCP dependence Status: Acute (3) Alcohol dependence with uncomplicated withdrawal Status: Acute - AMA Did Patient Leave Against Medical Advice: No [facility] CIWA - CIWA Score Nausea/Vomitin-No Nausea/No Vomiting Muscle Tremors: None Anxiety: 2 Agitation: 2 Paroxysmal Sweats: No Perspiration Orientation: 0-Oriented Tacttile Disturbances: 0-None Auditory Disturbances: 0-None Visual Disturbances: 0-None Headache: 0-None Present CIWA-Ar Total Score: 4
== END 2019-01-09 09:48 | disposition home or self-care (01) | DRG 775 ==
LOC: YASAS 12:30 → Y3N 17:05
PROVIDERS: ADMIT Surgery; ATTEND Surgery
PROC: HZ2ZZZZ Detoxification Services for Substance Abuse Treatment (ICD-10-PCS; principal; 2019-01-05)
DX: F10.230 Alcohol dependence with withdrawal, uncomplicated (principal); F16.20 Hallucinogen dependence, uncomplicated; F12.20 Cannabis dependence, uncomplicated; F17.210 Nicotine dependence, cigarettes, uncomplicated; R94.5 Abnormal results of liver function studies
CPT/HCPCS: 36415; 80053; 85027; 86480; 86593; 87389; 87491; 87591

== ENCOUNTER 2019-02-02 14:18 | Inpatient (IN) | payer OTHER ==
[2019-02-02 14:33] VITALS: BMI 25.0
--- NOTE | 2019-02-02 16:49 | HP ---
CIWA Score Nausea/Vomitin-No Nausea/No Vomiting Muscle Tremors: 3 Anxiety: 1-Mildly Anxious Agitation: 1-Slight > Activity Paroxysmal Sweats: 3 (Increased facial moisture) Orientation: 0-Oriented Tacttile Disturbances: 0-None Auditory Disturbances: 0-None Visual Disturbances: 0-None Headache: 0-None Present CIWA-Ar Total Score: 8 - Admission Criteria OASAS Guidelines: Admission for Medically Managed Detox: Requires at least one of the followin. CIWA greater than 12 2. Seizures within the past 24 hours 3. Delirium tremens within the past 24 hours 4. Hallucinations within the past 24 hours 5. Acute intervention needed for co occurring medical disorder 6. Acute intervention needed for co occurring psychiatric disorder 7. Severe withdrawal that cannot be handled at a lower level of care (continued vomiting, continued diarrhea, abnormal vital signs) requiring intravenous medication and/or fluids 8. Patient presents the following: Acute intervention needed for co-occurring med or psych disorder (MATT: 0.059; T: 100.F) Admission Criteria Met: Admission criteria met Admitting History and Physical - Smoking History Smoking history: Former smoker Have you smoked in the past 12 months: No Aproximately how many cigarettes per day: 7 - Alcohol/Substance Use Hx Alcohol Use: Yes Admission ROS S - HPI Chief Complaint: Here for alcohol detox. I need to stop these drugs. Allergies/Adverse Reactions: Allergies Allergy/AdvReac Type Severity Reaction Status Date / Time No Known Allergies Allergy Verified 02/02/19 14:28 History of Present Illness: 33 yo presents w/ alcohol withdrawal seeking detox. MATT: 0.059 UTox: Neg Patient w/ low CIWA but has alcohol on board, which masks the withdrawal symptoms. Patient w/ noisy cough and elevated temp. Patient will be admitted and detox started later today, when withdrawal symptoms presents. Denies seizures, overdoses. Blackouts from drinking - last years ago. Discharged 01/09/19. States started drinking the next day. Alcohol use since age 17. Currently drinks 40oz x 4 beers/day. State last drink about 2 hours ago. Wakes up and drinks. PCP use since age 25. Smokes about 2-3x/week Marijuana use since age 17. Smokes every other day Nicotine use since age [age]. Currently smokes 1/2 PPD. PMHx: Asthma as a child. RPR: 01/06/19: Nonreactive QFT: : Negative MHHx: Denies depression. Denies thoughts of harming self or others. SHx: Lives w/ family. Unemployed. Currently has legal issues. Patient Name: Jon Don Date: 1985 Address: [address] [place] [address] Sex: Male Rx Written Rx Dispensed Drug Quantity Days Supply Prescriber Name 10/30/2018 10/31/2018 chlordiazepoxide 25 mg capsule 18 3 Eulalia Koroma 09/10/2018 09/11/2018 chlordiazepoxide 25 mg capsule 18 3 Monico Riojas Exam Limitations: No Limitations - Ebola screening Have you traveled outside of the country in the last 21 days: No Have you had contact with anyone from an Ebola affected area: No Have you been sick,other than usual withdrawal symptoms: No Do you have a fever: No - Review of Systems Constitutional: No Symptoms Reported EENT: reports: No Symptoms Reported Respiratory: reports: No Symptoms reported Cardiac: reports: No Symptoms Reported GI: reports: No Symptoms Reported : reports: No Symptoms Reported Musculoskeletal: reports: No Symptoms Reported Integumentary: reports: Other ([place] over (L) eye) Neuro: reports: No Symptoms reported Endocrine: reports: No Symptoms Reported Hematology: reports: No Symptoms Reported Psychiatric: reports: Orientated x3 Patient History - Patient Medical History Hx Anemia: No Hx Asthma: No Hx Chronic Obstructive Pulmonary Disease (COPD): No Hx Cancer: No Hx Cardiac Disorders: No Hx Congestive Heart Failure: No Hx Hypertension: No Hx Hypercholesterolemia: No Hx Pacemaker: No HX Cerebrovascular Accident: No Hx Seizures: No Hx Dementia: No Hx Diabetes: No Hx Gastrointestinal Disorders: No Hx Liver Disease: No Hx Genitourinary Disorders: No Hx Sexually Transmitted Disorders: No Hx Renal Disease (ESRD): No Hx Thyroid Disease: No Hx Human Immunodeficiency Virus (HIV): No Hx Hepatitis C: No Hx Depression: No Hx Suicide Attempt: No Hx Bipolar Disorder: No Hx Schizophrenia: No - Patient Surgical History Past Surgical History: Yes Hx Neurologic Surgery: Yes (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.) Hx Cataract Extraction: No Hx Cardiac Surgery: No Hx Lung Surgery: No Hx Breast Surgery: No Hx Breast Biopsy: No Hx Abdominal Surgery: No Hx Appendectomy: No Hx Cholecystectomy: No Hx Genitourinary Surgery: No Hx Section: No Hx Orthopedic Surgery: No Other Surgical History: surg to left side brain to remove clot; 4 yrs ago Anesthesia Reaction: No - PPD History Previous Implant?: No (TB Gold (QFT) 01/06/19) Documented Results: Negative w/proof Implanted On Prior [facility] Admission?: Yes Date: 01/08/19 (TB Gold (QFT)) PPD to be Administered?: No - Smoking Cessation Smoking history: Current every day smoker Have you smoked in the past 12 months: Yes Aproximately how many cigarettes per day: 10 Hx Chewing Tobacco Use: No Initiated information on smoking cessation: Yes 'Breaking Loose' booklet given: 02/02/19 - Substance & Tx. History Hx Alcohol Use: Yes Hx Substance Use: Yes Substance Use Type: Alcohol, Marijuana, Tranquilizers (PCP) Hx Substance Use Treatment: Yes (detox, rehab) - Substances abused Alcohol Substance route: Oral Frequency: Daily Amount used: (4) 40oz beers Age of first use: 17 Date of last use: 02/02/19 Marijuana/Hashish Substance route: Smoking Frequency: 3-6 times per week Amount used: $20 Age of first use: 17 Date of last use: 02/01/19 PCP Substance route: Smoking Frequency: 3-6 times per week Amount used: 2 blunts Age of first use: 25 Date of last use: 02/02/19 Admission Physical Exam BHS - Vital Signs Vital Signs: Vital Signs - 24 hr 02/02/19 14:27 Temperature 100.0 F H Pulse Rate 81 Respiratory 20 Rate Blood Pressure 156/82 - Physical General Appearance: Yes: Nourished, Mild Distress, Alcohol on Breath (MATT: 0.59) HEENTM: Yes: EOMI (Jerking movement of eyes upon (R) lateral gaze), Hearing grossly Normal, Normocephalic, Normal Voice, NIDIA, Pharynx Normal Respiratory: Yes: Lungs Clear (Pulse Ox = 97 %), Normal Breath Sounds, No Respiratory Distress, Other (Noisy cough productive of whitish phlegm) Neck: Yes: No masses,lesions,Nodules, Supple Breast: Yes: Breast Exam Deferred Cardiology: Yes: Regular Rhythm, Regular Rate, S1, S2 Abdominal: Yes: Non Tender, Flat, Soft, Increased Bowel Sounds Genitourinary: Yes: Within Normal Limits Back: Yes: Within Normal Limits Musculoskeletal: Yes: full range of Motion, Gait Steady Extremities: Yes: Normal Capillary Refill, Normal Range of Motion, Tremors ( Mild tremors w/ arm extension) Neurological: Yes: psychiatric specialist II-XII NML intact (Jerking movement of eyes upon (R) lateral gaze), Fully Oriented, Alert, Motor Strength 5/5, Normal Response Integumentary: Yes: Normal Color, Dry (Decreased skin turgor), Warm, Other ( Scattered healing abrasions on (L) eyebrow area, (L) elbow, hands and both knees ) Lymphatic: Yes: Within Normal Limits - Diagnostic (1) Elevated temperature Current Visit: Yes Status: Acute (2) Cough Current Visit: Yes Status: Acute (3) At risk for dehydration Current Visit: Yes Status: Acute (4) Alcohol dependence with uncomplicated withdrawal Current Visit: Yes Status: Acute (5) Nicotine dependence Current Visit: Yes Status: Chronic Qualifiers: Nicotine product type: cigarettes Substance use status: uncomplicated Qualified Code(s): F17.210 - Nicotine dependence, cigarettes, uncomplicated (6) PCP dependence Current Visit: Yes Status: Suspected (7) Unspecified nystagmus Current Visit: Yes Status: Acute Cleared for Admission S - Detox or Rehab [facility] Level of Care: Medically Managed Detox Regimen/Protocol: Librium Claeared for Rehab Admission: No Breathalyzer - Breathalyzer Breathalyzer: 0.059 Urine Drug Screen - Test Device Lot number: [id number] Expiration date: 09/19/20 - Control Is test valid?: Yes - Results Drug screen NEGATIVE: Yes Inpatient Rehab Admission - Rehab Decision to Admit Inpatient rehab admission?: No
[2019-02-02] MEDS ORDERED: MAG HYDROX/AL HYDROX/SIMETH 30 ML UNIT-DOSE CUP PO PRN (17:31)
[2019-02-02] MEDS ORDERED: MAGNESIUM CITRATE 300 ML BOTTLE PO PRN (17:31)
[2019-02-02] MEDS ORDERED: MAGNESIUM HYDROX 2400MG/30ML ORAL SUSPENSION 30 ML CUP PO PRN (17:31)
[2019-02-02] MEDS ORDERED: BISMUTH SUBSALICYLATE 524 MG/30 ML UD PO PRN (17:31)
[2019-02-02] MEDS ORDERED: PROCHLORPERAZINE MALEATE 5 MG TABLET PO PRN (17:31)
[2019-02-02] MEDS ORDERED: chlordiazePOXIDE HCL 10 MG CAPSULE PO PRN (17:31)
[2019-02-02] MEDS ORDERED: MENTHOL/PHENOL 1 EACH UD MM PRN (17:31)
[2019-02-02] MEDS ORDERED: IBUPROFEN 400 MG TABLET (FP) PO PRN (17:31)
[2019-02-02] MEDS ORDERED: ACETAMINOPHEN 325 MG TABLET (FP) PO PRN ×2 (17:31)
[2019-02-02] MEDS ORDERED: NICOTINE POLACRILEX 2 MG GUM BUC PRN (17:35)
[2019-02-02] MEDS: guaiFENesin 200 MG/10 ML 10 ML UNIT-DOSE CUPS PO SCH ×2 (18:24→23:11)
[2019-02-02] MEDS: chlordiazePOXIDE HCL 10 MG CAPSULE PO ONE (18:24)
[2019-02-02] MEDS: chlordiazePOXIDE HCL 25 MG CAPSULE PO SCH (22:17)
[2019-02-02] MEDS: MELATONIN 5 MG TABLETS PO PRN (22:18)
[2019-02-02] MEDS: THIAMINE HCL 100 MG TABLET (FP) PO SCH (22:18)
[2019-02-03] MEDS: guaiFENesin 200 MG/10 ML 10 ML UNIT-DOSE CUPS PO SCH ×4 (06:03→22:48)
[2019-02-03] MEDS: chlordiazePOXIDE HCL 25 MG CAPSULE PO SCH ×3 (06:03→22:15)
[2019-02-03 09:32] LABS: HEMOGLOBIN 12.4 GM/dL (11.7-16.9); MCH 22.5 pg (25.7-33.7); MCHC 30.9 g/dl (32.0-35.9); MEAN CELL VOLUME 72.8 fl (80-96); MEAN PLT VOLUME 9.1 fl (7.5-11.1); PLATELET COUNT 253 K/MM3 (134-434); RBC 5.49 M/mm3 (4.00-5.60); RDW 15.4 % (11.9-15.9); WHITE BLOOD COUNT 7.6 K/mm3 (4.0-10.0)
[2019-02-03 10:01] LABS: ALBUMIN 3.7 g/dl (3.4-5.0); BILIRUBIN,TOTAL 0.6 mg/dL (0.2-1); BLOOD UREA NITROGEN 12.1 mg/dL (7-18); CALCIUM 8.8 mg/dL (8.5-10.1); CREATININE 0.8 mg/dL (0.55-1.3); TOT PROT 6.8 g/dl (6.4-8.2)
[2019-02-03] MEDS: PRENATAL VITAMINS W/ FOLIC ACID TABLET (FP) PO SCH (10:25)
[2019-02-03] MEDS: NICOTINE 14 MG/24 HOURS TOPICAL PATCH TD SCH (10:26)
[2019-02-03 14:43] LABS: URINE APPEARANCE CLEAR; URINE BILIRUBIN NEGATIVE (NEGATIVE); URINE COLOR YELLOW; URINE GLUCOSE (UA) NEGATIVE (NEGATIVE); URINE KETONE NEGATIVE (NEGATIVE); URINE LEUK ESTERASE NEGATIVE (NEGATIVE); URINE NITRITE NEGATIVE (NEGATIVE); URINE PROTEIN NEGATIVE (NEGATIVE); URINE UROBILINOGEN 0.2 mg/dL (0.2-1.0)
--- NOTE | 2019-02-03 14:58 | PN ---
S CIWA - CIWA Score Nausea/Vomitin-No Nausea/No Vomiting Muscle Tremors: 3 Anxiety: 3 Agitation: 2 Paroxysmal Sweats: 2 Orientation: 0-Oriented Tacttile Disturbances: 0-None Auditory Disturbances: 2-Mild Harshness/Frighten Visual Disturbances: 1-Very Mild Sensitivity Headache: 0-None Present CIWA-Ar Total Score: 13 BHS Progress Note (SOAP) Subjective: Sweating, Anxious, Tremors, Poor Appetite. Objective: PATIENT A & O X 3. IN NO ACUTE DISTRESS. 02/03/19 15:03 Vital Signs Temperature 97.5 F L 02/03/19 13:11 Pulse Rate 63 02/03/19 13:11 Respiratory Rate 18 02/03/19 13:11 Blood Pressure 130/81 02/03/19 13:11 O2 Sat by Pulse Oximetry (%) Laboratory Tests 02/03/19 02/03/19 02/03/19 07:50 07:50 12:00 WBC 7.6 RBC 5.49 Hgb 12.4 Hct 40.0 MCV 72.8 L MCH 22.5 L MCHC 30.9 L RDW 15.4 Plt Count 253 MPV 9.1 Sodium 138 Potassium 4.0 Chloride 106 Carbon Dioxide 28 Anion Gap 4 L BUN 12.1 Creatinine 0.8 Est GFR (CKD-EPI)AfAm 134.14 Est GFR (CKD-EPI)NonAf 115.74 Random Glucose 107 H Calcium 8.8 Total Bilirubin 0.6 AST 61 H ALT 76 H Alkaline Phosphatase 63 Total Protein 6.8 Albumin 3.7 Urine Color Yellow Urine Appearance Clear Urine pH 7.0 D Ur Specific [place] 1.025 Urine Protein Negative Urine Glucose (UA) Negative Urine Ketones Negative Urine Blood Negative Urine Nitrite Negative Urine Bilirubin Negative Urine Urobilinogen 0.2 Ur Leukocyte Esterase Negative LABS NOTED. Assessment: 02/03/19 15:04 WITHDRAWAL SYMPTOMS. ELEVATED AST LEVEL. ELEVATED ALT LEVEL. 02/03/19 15:04 Plan: CONTINUE DETOX. ENSURE PO FOR CALORIC SUPPLEMENTATION.
[2019-02-03] MEDS: THIAMINE HCL 100 MG TABLET (FP) PO SCH (22:15)
[2019-02-03] MEDS: MELATONIN 5 MG TABLETS PO PRN (22:16)
[2019-02-04] MEDS: chlordiazePOXIDE 5 MG CAPSULE PO SCH ×3 (05:35→22:17)
[2019-02-04] MEDS: guaiFENesin 200 MG/10 ML 10 ML UNIT-DOSE CUPS PO SCH ×4 (05:35→22:49)
[2019-02-04] MEDS: PRENATAL VITAMINS W/ FOLIC ACID TABLET (FP) PO SCH (10:29)
[2019-02-04] MEDS: NICOTINE 14 MG/24 HOURS TOPICAL PATCH TD SCH (10:29)
--- NOTE | 2019-02-04 15:30 | PN ---
S CIWA - CIWA Score Nausea/Vomitin-Mild Nausea/No Vomiting Muscle Tremors: 2 Anxiety: 3 Agitation: 2 Paroxysmal Sweats: 2 Orientation: 0-Oriented Tacttile Disturbances: 1-Very Mild Itch/Numbness Auditory Disturbances: 0-None Visual Disturbances: 0-None Headache: 1-Very Mild CIWA-Ar Total Score: 12 S Progress Note (SOAP) Subjective: c/o of chills, interrupted sleep, body aches Objective: 02/04/19 15:29 Vital Signs Temperature 96.4 F L 02/04/19 13:12 Pulse Rate 73 02/04/19 13:12 Respiratory Rate 18 02/04/19 13:12 Blood Pressure 125/68 02/04/19 13:12 O2 Sat by Pulse Oximetry (%) Laboratory Last Values WBC 7.6 K/mm3 (4.0-10.0) 02/03/19 07:50 RBC 5.49 M/mm3 (4.00-5.60) 02/03/19 07:50 Hgb 12.4 GM/dL (11.7-16.9) 02/03/19 07:50 Hct 40.0 % (35.4-49) 02/03/19 07:50 MCV 72.8 fl (80-96) L 02/03/19 07:50 MCH 22.5 pg (25.7-33.7) L 02/03/19 07:50 MCHC 30.9 g/dl (32.0-35.9) L 02/03/19 07:50 RDW 15.4 % (11.9-15.9) 02/03/19 07:50 Plt Count 253 K/MM3 (134-434) 02/03/19 07:50 MPV 9.1 fl (7.5-11.1) 02/03/19 07:50 Sodium 138 mmol/L (136-145) 02/03/19 07:50 Potassium 4.0 mmol/L (3.5-5.1) 02/03/19 07:50 Chloride 106 mmol/L (98-107) 02/03/19 07:50 Carbon Dioxide 28 mmol/L (21-32) 02/03/19 07:50 Anion Gap 4 MMOL/L (8-16) L 02/03/19 07:50 BUN 12.1 mg/dL (7-18) 02/03/19 07:50 Creatinine 0.8 mg/dL (0.55-1.3) 02/03/19 07:50 Est GFR (CKD-EPI)AfAm 134.14 02/03/19 07:50 Est GFR (CKD-EPI)NonAf 115.74 02/03/19 07:50 Random Glucose 107 mg/dL (74-106) H 02/03/19 07:50 Calcium 8.8 mg/dL (8.5-10.1) 02/03/19 07:50 Total Bilirubin 0.6 mg/dL (0.2-1) 02/03/19 07:50 AST 61 U/L (15-37) H 02/03/19 07:50 ALT 76 U/L (13-61) H 02/03/19 07:50 Alkaline Phosphatase 63 U/L (45-117) 02/03/19 07:50 Total Protein 6.8 g/dl (6.4-8.2) 02/03/19 07:50 Albumin 3.7 g/dl (3.4-5.0) 02/03/19 07:50 Urine Color Yellow 02/03/19 12:00 Urine Appearance Clear 02/03/19 12:00 Urine pH 7.0 (5.0-8.0) D 02/03/19 12:00 Ur Specific [place] 1.025 (1.010-1.035) 02/03/19 12:00 Urine Protein Negative (NEGATIVE) 02/03/19 12:00 Urine Glucose (UA) Negative (NEGATIVE) 02/03/19 12:00 Urine Ketones Negative (NEGATIVE) 02/03/19 12:00 Urine Blood Negative (NEGATIVE) 02/03/19 12:00 Urine Nitrite Negative (NEGATIVE) 02/03/19 12:00 Urine Bilirubin Negative (NEGATIVE) 02/03/19 12:00 Urine Urobilinogen 0.2 mg/dL (0.2-1.0) 02/03/19 12:00 Ur Leukocyte Esterase Negative (NEGATIVE) 02/03/19 12:00 Assessment: 02/04/19 15:29 Aox3 no acute distress ambulating in the unit withdrawal sx Plan: increase PO fluids continue detox continue to monitor
[2019-02-04] MEDS: THIAMINE HCL 100 MG TABLET (FP) PO SCH (22:17)
[2019-02-04] MEDS: MELATONIN 5 MG TABLETS PO PRN (22:19)
[2019-02-05] MEDS ORDERED: chlordiazePOXIDE HCL 10 MG CAPSULE PO PRN
[2019-02-05] MEDS: guaiFENesin 200 MG/10 ML 10 ML UNIT-DOSE CUPS PO SCH ×2 (05:48→12:26)
[2019-02-05] MEDS: chlordiazePOXIDE HCL 10 MG CAPSULE PO SCH ×3 (05:49→22:23)
[2019-02-05] MEDS: NICOTINE 14 MG/24 HOURS TOPICAL PATCH TD SCH (10:35)
[2019-02-05] MEDS: PRENATAL VITAMINS W/ FOLIC ACID TABLET (FP) PO SCH (10:35)
[2019-02-05] MEDS: MELATONIN 5 MG TABLETS PO PRN (22:23)
[2019-02-05] MEDS: THIAMINE HCL 100 MG TABLET (FP) PO SCH (22:23)
[2019-02-06] MEDS: chlordiazePOXIDE HCL 10 MG CAPSULE PO ONE (05:25)
--- NOTE | 2019-02-06 08:31 | DS ---
[facility] Detox Discharge Summary Admission Date: 02/02/19 Discharge Date: 02/06/19 - History Present History: Alcohol Dependence Additional Comments: Patient tolerated detox well. Follow up with next level of care at [facility]. Follow up with PCP Dr. Samson [phone]. If worsening symptoms are present seek medical attention. Pertinent Past History: Elevated LFTS Nicotine Dependence Vital Signs Temperature 97.2 F L 02/06/19 09:09 Pulse Rate 97 H 02/06/19 09:09 Respiratory Rate 18 02/06/19 09:09 Blood Pressure 122/81 02/06/19 09:09 O2 Sat by Pulse Oximetry (%) Laboratory Last Values WBC 7.6 K/mm3 (4.0-10.0) 02/03/19 07:50 RBC 5.49 M/mm3 (4.00-5.60) 02/03/19 07:50 Hgb 12.4 GM/dL (11.7-16.9) 02/03/19 07:50 Hct 40.0 % (35.4-49) 02/03/19 07:50 MCV 72.8 fl (80-96) L 02/03/19 07:50 MCH 22.5 pg (25.7-33.7) L 02/03/19 07:50 MCHC 30.9 g/dl (32.0-35.9) L 02/03/19 07:50 RDW 15.4 % (11.9-15.9) 02/03/19 07:50 Plt Count 253 K/MM3 (134-434) 02/03/19 07:50 MPV 9.1 fl (7.5-11.1) 02/03/19 07:50 Sodium 138 mmol/L (136-145) 02/03/19 07:50 Potassium 4.0 mmol/L (3.5-5.1) 02/03/19 07:50 Chloride 106 mmol/L (98-107) 02/03/19 07:50 Carbon Dioxide 28 mmol/L (21-32) 02/03/19 07:50 Anion Gap 4 MMOL/L (8-16) L 02/03/19 07:50 BUN 12.1 mg/dL (7-18) 02/03/19 07:50 Creatinine 0.8 mg/dL (0.55-1.3) 02/03/19 07:50 Est GFR (CKD-EPI)AfAm 134.14 02/03/19 07:50 Est GFR (CKD-EPI)NonAf 115.74 02/03/19 07:50 Random Glucose 107 mg/dL (74-106) H 02/03/19 07:50 Calcium 8.8 mg/dL (8.5-10.1) 02/03/19 07:50 Total Bilirubin 0.6 mg/dL (0.2-1) 02/03/19 07:50 AST 61 U/L (15-37) H 02/03/19 07:50 ALT 76 U/L (13-61) H 02/03/19 07:50 Alkaline Phosphatase 63 U/L (45-117) 02/03/19 07:50 Total Protein 6.8 g/dl (6.4-8.2) 02/03/19 07:50 Albumin 3.7 g/dl (3.4-5.0) 02/03/19 07:50 Urine Color Yellow 02/03/19 12:00 Urine Appearance Clear 02/03/19 12:00 Urine pH 7.0 (5.0-8.0) D 02/03/19 12:00 Ur Specific [place] 1.025 (1.010-1.035) 02/03/19 12:00 Urine Protein Negative (NEGATIVE) 02/03/19 12:00 Urine Glucose (UA) Negative (NEGATIVE) 02/03/19 12:00 Urine Ketones Negative (NEGATIVE) 02/03/19 12:00 Urine Blood Negative (NEGATIVE) 02/03/19 12:00 Urine Nitrite Negative (NEGATIVE) 02/03/19 12:00 Urine Bilirubin Negative (NEGATIVE) 02/03/19 12:00 Urine Urobilinogen 0.2 mg/dL (0.2-1.0) 02/03/19 12:00 Ur Leukocyte Esterase Negative (NEGATIVE) 02/03/19 12:00 Aox3 no acute distress EENT WNL Full ROM no gait disturbance No edema or erythema - Physical Exam Results Vital Signs: Vital Signs Temperature 97.6 F 02/06/19 06:22 Pulse Rate 53 L 02/06/19 06:22 Respiratory Rate 18 02/06/19 06:22 Blood Pressure 110/66 02/06/19 06:22 O2 Sat by Pulse Oximetry (%) - Treatment Hospital Course: Detox Protocol Followed, Detoxed Safely, Responded well, Discharged Condition Good, Rehab Referral Accepted Patient has Accepted a Rehab Referral to: [facility] - Medication Discharge Medications: Ambulatory Orders NK [No Known Home Medication] 01/10/17 - Diagnosis (1) Alcohol dependence with uncomplicated withdrawal Status: Acute (2) Elevated alanine aminotransferase (ALT) level Status: Acute (3) Elevated aspartate aminotransferase level Status: Acute (4) Nicotine dependence Status: Chronic Qualifiers: Nicotine product type: cigarettes Substance use status: uncomplicated Qualified Code(s): F17.210 - Nicotine dependence, cigarettes, uncomplicated - AMA Did Patient Leave Against Medical Advice: No
[2019-02-06 09:10] VITALS: BP 122/81; PULSE 97; TEMP 97.2
== END 2019-02-06 09:04 | disposition home or self-care (01) | DRG 775 ==
LOC: YASAS 14:18 → Y3N 17:55
PROVIDERS: ADMIT Allergy & Immunology; ATTEND Allergy & Immunology
PROC: HZ2ZZZZ Detoxification Services for Substance Abuse Treatment (ICD-10-PCS; principal; 2019-02-02)
DX: F10.230 Alcohol dependence with withdrawal, uncomplicated (principal); F16.21 Hallucinogen dependence, in remission; F12.21 Cannabis dependence, in remission; F17.210 Nicotine dependence, cigarettes, uncomplicated; H55.00 Unspecified nystagmus; R50.9 Fever, unspecified; R05 Cough; Z87.09 Personal history of other diseases of the respiratory system; Z91.89 Other specified personal risk factors, not elsewhere classified
CPT/HCPCS: 36415; 80053; 81003; 85027